=== PATIENT | male | born 1950 | race Caucasian/White ===

== ENCOUNTER 2019-03-31 06:04 | Inpatient (IN) ==
[2019-03-27 11:17] LABS: Appearance,Urine CLEAR; Bilirubin,Urine NEG (NEG); Color,Urine YELLOW; Culture Indicated,Urine NO; Glucose,Urine (UA) NEGATIVE (NEG); Ketones,Urine NEG (NEG); Leukocyte Esterase,Urine NEG /uL (NEG); Nitrate,Urine NEG (NEG); Protein,Urine NEG (NEG); Specific Gravity,Urine 1.023 (1.000-1.035); Urine Blood NEG mg/dL (<0.03); Urobilinogen,Urine NEG (NEG)
[2019-03-27 13:17] LABS: Basophils # (Auto) 0 K/mcL (0.0-0.3); Basophils % (Auto) 0.4 % (0.0-2.0); Eosinophils # (Auto) 0.1 K/mcL (0.0-0.7); Granulocytes % (Auto) 71.4 % (38.0-78.0); Hematocrit 47.4 % (41.0-55.0); Hemoglobin 15.4 g/dL (13.5-16.5); Lymphocytes # (Auto) 1.3 K/mcL (1.5-4.8); Lymphocytes % (Auto) 17.6 % (15.5-49.0); Mean Cell Volume 90.5 fL (80.0-100.0); Mean Corpuscular HGB Conc 32.5 g/dL (31.0-36.0); Mean Platelet Volume 9.4 fL (7.4-10.4); Monocytes # (Auto) 0.6 K/mcL (0.1-0.9); Monocytes % (Auto) 8.6 % (1.0-12.0); Platelet Count 182 K/mcL (140-440); RBC 5.23 M/mcL (4.50-5.90); Red Cell Distribution Width 13.9 % (11.5-14.5); WBC 7.5 K/mcL (4.5-11.0)
[2019-03-27 13:23] LABS: Blood Urea Nitrogen 13 mg/dl (8-23); Calcium 10.6 mg/dl (8.6-10.4); Carbon Dioxide 34 mmol/L (22-30); Chloride 101 mmol/L (96-108); Glomerular Filtration Rate 78; Glucose 99 mg/dL (70-105)
[2019-03-27 13:30] LABS: INR 0.9 (0.9-1.1); Prothrombin Time 12.4 sec (11.9-14.5)
[~2019-03-31 06:04] MED LIST: 0.9 % SODIUM CHLORIDE 9 ML, KETOROLAC 30 MG, ROPIVACAINE HCL/PF 49.5 ML, EPINEPHrine 0.... IJ SCH; CELECOXIB 200 MG CAPSULE PO SCH; IPRATROPIUM/ALBUTEROL 3 ML AMPUL.NEB NEB PRN; PREGABALIN 75 MG CAPSULE PO SCH; SCOPOLAMINE 1 PATCH PATCH TOPICAL PRN; ceFAZolin 3 GM in DEXTROSE 5% IN WATER 50 ML IV SCH; oxyCODONE 10 MG TAB.ER.12H PO SCH
[2019-03-31] MEDS ORDERED: ceFAZolin 3 GM in DEXTROSE 5% IN WATER 50 ML IV SCH (11:00)
[2019-03-31] MEDS ORDERED: ROPIVACAINE HCL/PF 20 ML VIAL IJ ONE (11:05)
[2019-03-31] MEDS ORDERED: PROPOFOL 200 MG/20 ML VIAL IV ONE (11:05)
[2019-03-31] MEDS ORDERED: DEXAMETHASONE 10 MG/ML VIAL IV ONE (11:05)
[2019-03-31] MEDS ORDERED: ONDANSETRON 4 MG/2 ML VIAL IV ONE (11:05)
[2019-03-31] MEDS ORDERED: TRANEXAMIC ACID 1,000 MG/10 ML VIAL IV ONE ×2 (11:05→12:40)
[2019-03-31] MEDS ORDERED: LIDOCAINE HCL/PF 100 MG/5 ML SYRINGE IV ONE (11:05)
[2019-03-31] MEDS ORDERED: KETAMINE 100 MG/ML ML IV ONE (11:05)
[2019-03-31] MEDS ORDERED: GENTAMICIN SULFATE 800 MG/20 ML VIAL IR ONE (11:27)
[2019-03-31] MEDS ORDERED: PROMETHAZINE 25 MG/ML VIAL IV PRN (12:28)
[2019-03-31] MEDS ORDERED: FLUMAZENIL 0.1 MG/ML ML IV PRN (12:28)
[2019-03-31] MEDS ORDERED: ACETAMINOPHEN 1,000 MG/100 ML BOTTLE IV ONE (12:28)
[2019-03-31] MEDS ORDERED: ONDANSETRON 4 MG/2 ML VIAL IV PRN ×2 (12:28→12:40)
[2019-03-31] MEDS ORDERED: LACTATED RINGERS 250 ML IV PRN (12:28)
[2019-03-31] MEDS ORDERED: IPRATROPIUM/ALBUTEROL 3 ML AMPUL.NEB NEB PRN (12:28)
[2019-03-31] MEDS ORDERED: diphenhydrAMINE 50 MG/ML VIAL IV PRN (12:28)
[2019-03-31] MEDS ORDERED: MEPERIDINE 25 MG/ML SYRINGE IV PRN (12:28)
[2019-03-31] MEDS ORDERED: fentaNYL 100 MCG/2 ML VIAL IV PRN (12:28)
[2019-03-31] MEDS ORDERED: NALOXONE HCL 0.4 MG/ML VIAL IV PRN (12:28)
[2019-03-31] MEDS ORDERED: LACTATED RINGERS 1,000 ML IV SCH (12:30)
[2019-03-31] MEDS ORDERED: ONDANSETRON 4 MG ODT TABLET SL PRN (12:40)
[2019-03-31] MEDS ORDERED: ACETAMINOPHEN 325 MG TABLET PO PRN (12:40)
[2019-03-31] MEDS ORDERED: METHOCARBAMOL 750 MG TABLET PO PRN (12:40)
[2019-03-31] MEDS ORDERED: BISACODYL 10 MG SUPP.RECT PR PRN (12:40)
[2019-03-31] MEDS ORDERED: MAGNESIUM HYDROXIDE 30 ML ORAL.SUSP PO PRN (12:40)
[2019-03-31] MEDS ORDERED: BENZOCAINE/MENTHOL 1 LOZENGE PO PRN (12:40)
[2019-03-31] MEDS ORDERED: FLEETS ADULT ENEMA PR PRN (12:40)
[2019-03-31] MEDS ORDERED: POLYETHYLENE GLYCOL 3350 17 GM PACKET PO PRN (12:40)
--- NOTE | 2019-03-31 12:40 | Brief Operative Note ---
Date of procedure: 03/31/19 Pre-op diagnosis: left knee osteoarthritis Post-op diagnosis: same Procedure: left total knee arthroplasty Grafts/Implants: Yes Anesthesia: spinal Complications: none Surgeon: Shawn Banda Child Nutrition Assistant: Ryann Chapman Estimated blood loss (cc): 150 Tourniquet Time (Minutes): 63 Specimens Removed/Pathology: none sent Condition: stable Disposition: PACU
--- NOTE | 2019-03-31 12:55 | Operative Note ---
DATE OF OPERATION: 03/31/2019 PREOPERATIVE DIAGNOSIS: Degenerative joint disease, left knee. POSTOPERATIVE DIAGNOSIS: Degenerative joint disease, left knee. PROCEDURE: Left total knee arthroplasty. SURGEON: Sumaya Banda M.D. HOSPICE RN SURGEON: Ryann Chapman PA-C. The PA's assistance was required for the safe and efficient completion of the entire case. This provider's expertise and technical skill were required throughout the case. The PA assisted with preoperative coordination, intraoperative retraction, wound closure, dressing and splint application, as well as postoperative documentation and care coordination. ANESTHESIA: Spinal with LMA assist. ESTIMATED BLOOD LOSS: 150 mL. COMPLICATIONS: None noted. SPECIMENS REMOVED: None. DRAINS: None. TOURNIQUET TIME: 63 minutes at 300 mmHg. IMPLANTS: DePuy Attune femoral posterior stabilized size 10 left, cemented; DePuy Attune tibial insert fixed bearing posterior stabilized size 10, 5 mm AOX; DePuy Attune tibial base fixed bearing size 9, cemented; DePuy Attune patella medialized dome 41 mm, cemented AOX. INDICATIONS: The patient has had a long-standing history of worsening pain in the knee that has failed conservative treatment. Radiographs have confirmed advanced degenerative joint disease. After a long discussion about treatment options, the patient elected to proceed with a knee arthroplasty. The risks and benefits were discussed with the patient in detail including, but not limited to, the risks of anesthesia, problems with the heart or lungs related to anesthesia, infection, compromise or injury to the nerves and blood vessels, deep venous thrombosis, pulmonary embolism, pneumonia, continued pain after surgery, worsening pain or symptoms after surgery, swelling, loss of motion, instability, leg length discrepancy, and need for repeat surgery. DESCRIPTION OF PROCEDURE: The patient was seen in the pre-anesthesia waiting room where all questions were answered and the correct side and site were identified and marked. The patient was transferred to the operating room and administered the anesthetic and given pre-operative antibiotics. A time-out was then called. The extremity was prepped and draped, exsanguinated, and the tourniquet was inflated to 300 mmHg. A midline skin incision was then made with a standard medial parapatellar arthrotomy. Debridement of the menisci, ACL, and PCL was performed followed by balancing releases in the medial lateral plane. We then established intramedullary access to both the femur and tibia in a standard fashion. The femoral guide raji was initially placed with the distal femoral guide, pinned into place, and the distal femoral cut was performed and checked with a flat plate. We then turned our attention to the tibia. The intramedullary guide was placed with the proximal tibial cutting block. The block was appropriately positioned off the affected side, varus and valgus was checked with the extra-medullary guide, and the block was pinned into place. The proximal tibial cut was performed and the tibia was prepared for the tibial implant with appropriate rotation. The tibia, femur, and posterior compartment were debrided of osteophytes, loose bodies, and meniscal fragments We then used the gap balancing technique to balance extension with the first two cuts and good balancing was obtained with a 10 millimeter gap block. We turned our attention back to the femur and used the referencing block and implant to size appropriately. Using the gap balancing technique for the flexion space we set our rotation of the femur off the tibial cut. Anesthesia gave the patient 1 gram of Tranexamic Acid via an intravenous route. We placed the 4 in 1 cutting block and made anterior, posterior, and chamfer cuts. Box plasty cuts were then made in a standard fashion for the posterior stabilized prosthesis. We then completed osteophyte release and posterior capsule release from the posterior compartment. Trials were placed and we chose the polyethylene insert thickness that provided the best stability in all planes. With the trials in place, we did a measured resection for a resurfacing patella. We sized the patella and placed the patella trial and performed a lateral facetectomy with the saw and rongeur. Good tracking was obtained. We removed all trials, irrigated and dried all cut surfaces. We cemented the components into place including tibia, femur and patella. We placed a trial liner and held the knee in full extension with the patella compressed while the cement cured. We then removed all excess cement and placed the final polyethylene tibiofemoral component. Irrigation with 3 liters of antibiotic saline was then performed using jet-lavage. We let the tourniquet down and coagulated bleeding vessels. We injected a 100 cubic centimeter volume including Ropivacaine 49.25 cubic centimeters at 5 milligrams per cubic centimeter, Ketorolac 30 milligrams, and Epinephrine 0.5 milligrams into 100 cubic centimeters volume of normal saline. We closed the retinaculum with #2 Stratafix and 0 Vicryl. We closed the subcutaneous tissue and skin in layers out to Dermabond on the skin. A sterile pressure dressing was applied. All needle and sponge counts were correct. The patient was transferred to the recovery room in stable condition. MILADIS:pedro Job ID: [id number] Doc ID: [id number] Sumaya Banda MD
--- NOTE | 2019-03-31 14:07 | XRay Report ---
HISTORY: Postop left knee replacement FINDINGS: There is a well-positioned left total knee prosthesis. No fracture is present. There is air in the surrounding soft tissues. Field impression: well-positioned left knee prosthesis Interpreted and Authenticated by: Avery Stevens 03/31/19
[2019-03-31] MEDS: 0.9 % SODIUM CHLORIDE 10 ML SYRINGE IV SCH ×2 (15:38→22:01)
[2019-03-31] MEDS: LACTATED RINGERS 1,000 ML IV SCH ×2 (15:38→22:01)
[2019-03-31] MEDS: KETOROLAC 30 MG/ML VIAL IV SCH (18:10)
[2019-03-31] MEDS: ceFAZolin 1 GM VIAL IV SCH (18:10)
[2019-03-31] MEDS: DOCUSATE SODIUM 100 MG CAPSULE PO SCH (20:38)
[2019-03-31] MEDS: METOPROLOL TARTRATE 50 MG TABLET PO SCH (20:38)
[2019-03-31] MEDS: HYDROcodone/APAP 10/325MG TABLET PO PRN (20:38)
[2019-03-31] MEDS ORDERED: ASPIRIN 81 MG TAB.CHEW PO SCH (21:00)
[2019-03-31] MEDS ORDERED: SENNOSIDES 1 TABLET PO SCH (21:00)
[2019-04-01] MEDS: KETOROLAC 30 MG/ML VIAL IV SCH ×3 (00:38→13:11)
[2019-04-01] MEDS: ceFAZolin 1 GM VIAL IV SCH (01:59)
[2019-04-01] MEDS: HYDROcodone/APAP 10/325MG TABLET PO PRN ×2 (03:00→13:10)
[2019-04-01] MEDS: 0.9 % SODIUM CHLORIDE 10 ML SYRINGE IV SCH ×2 (05:51→13:19)
[2019-04-01] MEDS: LACTATED RINGERS 1,000 ML IV SCH ×2 (05:51→12:45)
[2019-04-01 06:26] LABS: Hemoglobin 13.4 g/dL (13.5-16.5)
[2019-04-01] MEDS ORDERED: OMEPRAZOLE 20 MG CAPSULE PO SCH (07:30)
--- NOTE | 2019-04-01 07:37 | Orthopedic Progress Note ---
Subjective Patient information: Note initiated : 04/01/19 at 7:35 am Service Date, if different from initiated Date: [] Patient: Karl Nuenz 68 y/o M admitted on 03/31/19 for Left Total Knee Arthroplasty. Chief Complaint: [] Interval history: doing well. no complaints Objective Vital signs: Vital Signs Temp Pulse Resp BP Pulse Ox 04/01/19 00:31 97.6 F 85 12 110/65 90 03/31/19 19:09 97.4 F 103 H 12 112/71 91 03/31/19 17:00 90 03/31/19 16:22 90 16 108/74 03/31/19 15:35 83 16 120/72 03/31/19 15:05 77 16 129/76 95 03/31/19 14:54 77 16 140/76 90 03/31/19 14:40 75 16 130/74 98 03/31/19 14:24 71 16 134/70 94 03/31/19 14:09 73 16 136/74 89 L 03/31/19 13:55 74 16 94 03/31/19 13:47 97.0 F 75 16 137/71 97 03/31/19 13:32 96.9 F L 74 11 L 139/73 98 03/31/19 13:15 97.3 F 68 11 L 125/62 100 03/31/19 13:10 68 11 L 121/55 100 03/31/19 13:05 68 11 L 119/57 100 03/31/19 13:00 66 11 L 115/53 99 03/31/19 12:58 97.8 F 66 11 L 115/53 99 Intake and Output 03/31/19 04/01/19 04/01/19 21:59 05:59 13:59 Intake Total 640 2038 Output Total 600 Balance 640 1438 Intake: IV 798 Lactated Ringers 1,000 ml @ 125 798 mls/hr IV .Q8H [facility] Rx#: [id number] Oral 640 1240 Output: Void Amount 600 Other: Meal Dinner Nourishment/Supplement Percent of Meal Consumed 100% 100% Feeding Ability Independent Independent Urine Appearance Clear Urine Color Dark Yellow Urine Odor Normal Weight 296 lb 14.4 oz Intake & Output: Intake & Output 03/31/19 04/01/19 04/01/19 21:59 05:59 13:59 Intake Total 640 2038 Output Total 600 Balance 640 1438 Weight 296 lb 14.4 oz Intake: IV 798 Lactated Ringers 1,000 ml @ 125 798 mls/hr IV .Q8H [facility] Rx#: [id number] Oral 640 1240 Output: Void Amount 600 Other: Meal Dinner Nourishment/Supplement Percent of Meal Consumed 100% 100% Feeding Ability Independent Independent Urine Appearance Clear Urine Color Dark Yellow Urine Odor Normal Incision: Yes healing Incision clean and dry: Yes Dressing: Yes clean, Yes dry, Yes intact Weight bearing status: full Neurological exam IM: Yes abnormal gait, Yes alert, Yes oriented X3, Yes motor sensory intact, Yes neurovascular intact Extremities exam IM: No calf tenderness, Yes Foot pink and warm, Yes neurovascular intact - Labs CBC & BMP: 04/01/19 04:12 03/27/19 09:36 Labs: Orthopedic Labs 03/27/19 09:36 PT 12.4 INR 0.9 04/01/19 03/27/19 04:12 09:36 Hgb 13.4 L 15.4 Hct 41.0 47.4 Assessment and Plan (1) Knee osteoarthritis pod 1 s/p tka wbat pain control dvt prophylaxis pt d/c planning Status: Acute
--- NOTE | 2019-04-01 07:38 | Discharge Summary ---
Ortho Discharge - TKA - Patient Instructions Diet: Regular Diet Activity: ambulate with assistive device, weight bearing as tolerated Total Knee Protocol: For Total Knee: Start ROM TAHIR with stationary bike or rocking chair. Work on gaining full extension of knee. Posterior dislocation precautions provided. Hip abductor strengthening and gait training instructions provided. Apply Cryocuff as instructed. Dressing Care: May shower in 2 days - Problem Maintenance (1) Knee osteoarthritis Status: Acute - Follow Up Plan Disposition: Home, Self-Care Prognosis: Good Rehab Potential: Good Overall status at discharge: patient is progressing back to baseline
[2019-04-01] MEDS ORDERED: ASPIRIN 81 MG TAB.CHEW CHEWED SCH (09:00)
[2019-04-01] MEDS ORDERED: HYDROCHLOROTHIAZIDE 12.5 MG CAPSULE PO SCH (09:00)
[2019-04-01] MEDS ORDERED: ATORVASTATIN 20 MG TABLET PO SCH (09:00)
[2019-04-01] MEDS: METOPROLOL TARTRATE 50 MG TABLET PO SCH (12:36)
[2019-04-01] MEDS: DOCUSATE SODIUM 100 MG CAPSULE PO SCH (13:29)
== END 2019-04-01 15:00 | disposition home or self-care (01) | DRG 470 ==
LOC: EDACCT# → MEDSUR 06:04
PROVIDERS: ADMIT Orthopaedic Surgery Sports Medicine; ATTEND Orthopaedic Surgery Sports Medicine